=== PATIENT | male | born 1985 | race Caucasian/White ===

== ENCOUNTER 2019-05-21 20:30 | Emergency (ER) | payer BC, SELFPAY ==
[2019-05-21 20:33] VITALS: BP 137/78; PULSE 97; RESP 18; TEMP 36.6; O2SAT 100
--- NOTE | 2019-05-21 21:04 | ED.GENADULT ---
HPI - General Adult General Chief complaint: Eye Problems Stated complaint: R EYE PAIN Time Seen by Provider: 05/21/19 20:41 Source: patient Mode of arrival: ambulatory Limitations: no limitations History of Present Illness HPI narrative: Patient is a 34-year-old male who presents to emergency department for evaluation of scratch to the lateral right eye noting that his daughter accidentally poked him in the eye area is a small abrasion patient notes his tetanus is up-to-date notes mild pain does not take anything for his symptoms injury occurred just prior to arrival has no other complaints or concerns at this time Related Data Allergies Allergy/AdvReac Type Severity Reaction Status Date / Time No Known Allergies Allergy Mild Verified 05/21/19 20:49 Review of Systems Review of Systems: Narrative: CONSTITUTIONAL: Denies fever, chills, or sweats. EYES: Denies visual changes, or discharge. GASTROINTESTINAL: Denies nausea, vomiting NEUROLOGIC: Denies headache, PMFSH Social History Social History Smoking status: Former smoker Smoking end date: 04/15/16 Alcohol intake: never Gender identity (if verbalized by the patient): Male Exam Narrative: Exam Narrative: GENERAL: Well-appearing, well-nourished, and in no acute distress. HEAD: Normocephalic, atraumatic. EYES: PERRLA and EOMI. small abrasion to the lateral right conjunctive no other abnormalities noted ENT: Nares clear, no rhinorrhea or epistaxis. Mucous membranes moist. SKIN: Warm, dry, no rash. NEURO: No focal deficits. Alert and oriented x3. PSYCH: Normal mood and affect. Course Course Emergency Course: Patient in the room in no distress aware of case findings treatment plan and diagnosis agreeing to follow-up as directed or to return if symptoms worsen or concerns Vital Signs Vital signs: Vital Signs Temperature 98 F 05/21/19 20:33 Pulse Rate 97 05/21/19 20:33 Respiratory Rate 18 05/21/19 20:33 Blood Pressure 137/78 05/21/19 20:33 Pulse Oximetry 100 05/21/19 20:33 Temperature 98 F 05/21/19 20:33 Pulse Rate 97 05/21/19 20:33 Respiratory Rate 18 05/21/19 20:33 Blood Pressure 137/78 05/21/19 20:33 Pulse Oximetry 100 05/21/19 20:33 Medical Decision Making MDM Narrative Medical decision making narrative: Patient in the room in no distress aware of case findings treatment plan and diagnosis agreeing to follow-up as directed Vital Signs Vital Signs: Vital Signs Temperature 98 F 05/21/19 20:33 Pulse Rate 97 05/21/19 20:33 Respiratory Rate 18 05/21/19 20:33 Blood Pressure 137/78 05/21/19 20:33 Pulse Oximetry 100 05/21/19 20:33 Temperature 98 F 05/21/19 20:33 Pulse Rate 97 05/21/19 20:33 Respiratory Rate 18 05/21/19 20:33 Blood Pressure 137/78 05/21/19 20:33 Pulse Oximetry 100 05/21/19 20:33 Discharge Plan Discharge Clinical Impression: Corneal abrasion Patient Disposition: Home, Self-Care Condition: Stable Instructions: Antibiotic Form, Corneal Abrasion (ED) Additional Instructions: Follow-up with primary care and ophthalmology in the next 7 to 10 days for reevaluation Return if symptoms worsen or concerns or any increase in redness swelling pain fever over 100.5 or any visual changes Follow patient education sheets Only take medications as directed Use [id number] preservative-free tears for symptom relief every 2 hours Prescriptions: New erythromycin 5 mg/gram (0.5 %) ointment 1 applic RIGHT EYE TID Qty: 1 RF: 0 Follow-up/Referrals: Hmea Ramirez MD [Primary Care Provider] - Damaris Morel [Outside] Damaris Latham [Outside]
== END 2019-05-21 21:23 | disposition home or self-care (01) ==
PROVIDERS: Emergency Provider Emergency Medicine; PCP Family Medicine
DX: S05.01XA Injury of conjunctiva and corneal abrasion without foreign body, right eye, initial encounter (principal); Z87.891 Personal history of nicotine dependence; W51.XXXA Accidental striking against or bumped into by another person, initial encounter
CPT/HCPCS: 99283

== ENCOUNTER 2020-06-17 13:18 | Outpatient (CLI) | payer BC, SELFPAY ==
--- NOTE | ~2020-06-17 | US_ITS ---
EXAMINATION: US venous doppler UE LT DATE: 06/17/2020 14:06 INDICATION: Left upper limb pain and numbness TECHNIQUE: Grayscale images without and with compression and Doppler images of the left upper extremi ty veins were obtained. COMPARISON: None. FINDINGS: The left internal jugular vein, subclavian vein, axillary vein, brachial vein, basilic vein, cephalic vein, radial vein, and ulnar vein are patent. IMPRESSION: 1. Patent left upper extremity veins. No evidence of venous thrombosis. Reviewed, dictated and finalized at location B. ALK SOFTWARE DEVELOPER
== END 2020-06-17 13:19 ==
PROVIDERS: PCP Family Medicine; Visit Provider Physician Assistant
DX: M79.603 Pain in arm, unspecified (principal); R09.89 Other specified symptoms and signs involving the circulatory and respiratory systems; R20.0 Anesthesia of skin
CPT/HCPCS: 93971

== ENCOUNTER 2023-02-15 14:07 | Outpatient (CLI) | payer BC, SELFPAY ==
--- NOTE | ~2023-02-15 | XR_ITS ---
XR shoulder RT min 2V 02/15/2023 15:06 Indication: Right shoulder pain Procedure: 4 views right shoulder Comparison: No prior studies for comparison. Findings: No fracture, subluxation or dislocation. No significant soft tissue abnormality. No foreign bodies. Impression: 1: No acute bone or joint abnormality. Reviewed, dictated and finalized at location A. Impression: 1: No acute bone or joint abnormality.
--- NOTE | ~2023-02-15 | XR_ITS ---
XR cervical spine min 6V 02/15/2023 15:06 Indication: Neck pain Procedure: 7 views cervical spine including flexion/extension views Comparison: No prior studies for comparison. Findings: Lung apices are normal. Odontoid process is normal. No prevertebral soft tissue abnormality . No significant alteration of alignment with flexion/extension. There is degenerative retrolisthesis at C5-6 which is unchanged during flexion and extension. There is mild disc narrowing at C5-6. No pr evertebral soft tissue swelling. Impression: 1: Mild spondylosis at C5-6. Reviewed, dictated and finalized at location A. Impression: 1: Mild spondylosis at C5-6.
== END 2023-02-15 14:08 ==
LOC: MICIMG 14:11
PROVIDERS: PCP Physician Assistant; Visit Provider Physician Assistant
DX: M43.02 Spondylolysis, cervical region (principal)
CPT/HCPCS: 72052; 73030

== ENCOUNTER 2025-02-26 04:21 | Emergency (ER) | payer OTHER, SELFPAY ==
--- NOTE | ~2025-02-26 | CT_ITS ---
EXAMINATION: CT brain wo con, CT facial bones wo con DATE: 02/26/2025 09:08 INDICATION: Syncope with facial trauma TECHNIQUE: 1. Computed tomography (CT) of the head was performed without intravenous contrast. Sagittal and coronal reconstructions were performed. The mA was adjusted according to patient size. Iterative reconstruction technique was employed. The dose-length product was 336.32 mGy-cm. 2. CT of the facial bones and maxillofacial region was performed without intravenous contrast. Coronal reconstructions were obtained. Automated exposure control and iterative reconstruction technique were employed. The dose-length product was 336.32 mGy-cm. COMPARISON: None. FINDINGS: Head CT: No calvarial fractures. No acute intracranial hemorrhage, acute infarction or abnormal extra axial fluid collection. Ventricles are normal and symmetric. No mass/mass effect. The mastoid air cells and middle ear cavities are clear. Maxillofacial CT: No maxillofacial fractures. Specifically the mandible, nasal bones, zygomatic arches and dill of the orbits and paranasal sinuses are all intact. Orbits are normal. Paranasal sinuses are clear. Mild to moderate cervical spondylosis. IMPRESSION: 1. Normal brain with no acute intracranial process. 2. No calvarial or maxillofacial fractures. Reviewed, dictated and finalized at location A. MENT REVIEW SPECIALIST IMPRESSION: 1. Normal brain with no acute intracranial process. 2. No calvarial or maxillofacial fractures.
--- NOTE | ~2025-02-26 | XR_ITS ---
Examination: XR shoulder LT min 2V Clinical History: dislocation Comparison: None Technique: 3 views left shoulder Findings/impression: 1. No fracture or dislocation left shoulder. Reviewed, dictated and finalized at location R. STOR RELATIONS COORDINATOR
--- NOTE | ~2025-02-26 | XR_ITS ---
EXAMINATION: XR shoulder LT min 2V DATE: 02/26/2025 09:47 INDICATION: Status post reduction left shoulder dislocation TECHNIQUE: AP internally and transscapular Y views of the left shoulder were obtained. COMPARISON: 02/26/2025 FINDINGS: The left glenohumeral joint which appear previously posterior subluxed/dislocated appears successfully reduced to normal alignment. No fracture. 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 Visualized portion of the lungs are clear. Tissues are unremarkable. IMPRESSION: Successful reduction to normal alignment of a previous the posterior subluxed dislocated left glenohumeral joint. No acute fracture. Reviewed, dictated and finalized at location A. TATION ENGINEER IMPRESSION: Successful reduction to normal alignment of a previous the posterior subluxed d islocated left glenohumeral joint. No acute fracture.
[2025-02-26 04:26] VITALS: BP 151/73; PULSE 70; RESP 18; TEMP 36.7; O2SAT 100
[2025-02-26 07:55] VITALS: BP 180/75; PULSE 123; RESP 18; O2SAT 100
--- NOTE | 2025-02-26 07:58 | PC.NURSE ---
This RN called out to waiting room by housekeeping to check on pt. pt diaphoretic, and moaning in pain. pt states his left shoulder disloacted. pt in obvious pain. Pt brought into triage and vitals taken and IV started. Pt states that he has always been able to reduce his shoulder but can't get it back in this time. Pt moaning and crying in pain. MD made aware of situation, pain medications ordered and XR ordered at this time
[2025-02-26] MEDS: HYDROcodone/acetaminophen (*CRX) 5-325 MG TABLET 1 TAB PO (08:02)
[2025-02-26] MEDS: KETOROLAC 30 MG/ML VIAL (*BKC) IV PUSH (08:02)
--- NOTE | 2025-02-26 08:46 | ED_ITS ---
HPI - Syncope General Chief Complaint: Syncope Stated Complaint: syncope, chin lac Time Seen by Provider: 02/26/25 08:25 History of Present Illness HPI narrative: This is a 40-year-old male with history of frequent shoulder dislocations who presents to ED for a constellation of complaints. Patient states that he last night he was playing with his daughter and had his left arm flexed upwards near his head and he felt it pop out. He was able to reduce it himself but in doing so had severe pain and subsequently had an episode of syncope and hit a metal cabinet with his left chin. He states that his shoulder popped back out prompting him to come to the ED. reports that he feels at his baseline otherwise at this time. Denies headache, changes in vision, chest pain, palpitations shortness of breath. Related Data Allergies Allergy/AdvReac Type Severity Reaction Status Date / Time No Known Allergies Allergy Mild Verified 02/26/25 04:30 Review of Systems Review of Systems: Gen.: Denies fevers or chills Eyes: Denies eye pain or visual change ENT: Denies congestion Respiratory: Denies shortness of breath or cough CV: Denies chest pain or palpitations GI: Denies abdominal pain nausea, emesis or diarrhea denies burning, urgency, frequency or hematuria Musculoskeletal: As per HPI Neuro: Denies numbness, tingling, weakness or focal weakness Skin: Denies rash Except as documented, all other systems reviewed and negative [facility] Social History Social History Smoking packs per day: 0.5 Smoking cigarettes per day: 10.0 Years smoked: 11 Smoking pack-years: 5.50 Smoking status: Current every day smoker Tobacco type: cigarettes and e-cigarettes/vaping Second hand tobacco smoke exposure: No Smoking end date: 04/15/16 Alcohol intake: never Substance use: never Substance use type: does not use Living arrangements: with family Occupation/Education: occupation Gender identity (if verbalized by the patient): Male Sexual Orientation (if Verbalized by the Patient): Straight or Heterosexual Spiritual care concerns: No Exam Narrative: APPEARANCE: No acute distress, nontoxic, resting in bed EYES: EOMI HEENT: Normocephalic, atraumatic, OMM RESPIRATORY: No respiratory distress Clear to auscultation bilaterally with no rhonchi wheezing or rales. CARDIOVASCULAR: Regular rate and rhythm without murmurs rubs or gallops. ABDOMINAL: Soft, nontender, nondistended, no rebound or guarding MUSCULOSKELETAl: left upper extremity is held up against the chest. no jose tenderness. Pain with minimal passive ROM of the left upper extremity. Neurovascularly intact distally. NEURO: Awake and alert. Following commands, speech normal, no focal deficits SKIN:: Warm, dry. No rashes lesions or abrasions PSYCHIATRIC: Normal affect/mood, Course Vital Signs Vital signs: Vital Signs Temperature 98.0 F 02/26/25 04:26 Pulse Rate 70 02/26/25 04:26 Respiratory Rate 18 02/26/25 04:26 Blood Pressure 151/73 H 02/26/25 04:26 Pulse Oximetry 100 02/26/25 04:26 Temperature 98.0 F 02/26/25 04:26 Pulse Rate 81 02/26/25 10:10 Respiratory Rate 16 02/26/25 10:10 Blood Pressure 137/79 02/26/25 10:10 Pulse Oximetry 98 02/26/25 10:10 Procedures Laceration Laceration 1: Date: 02/26/25 Time: 09:25 Site: face (chin) Side (If applicable): left Size (cm): 2 Description: linear Depth: simple, single layer Local Anesthetic: lidocaine 2% Amount of anesthesia used (mL): 5 Pre-repair: wound explored and irrigated ====== Skin Level ====== Skin layer closed with: prolene Size (cm): 6-0 Number of sutures: 4 Technique: simple, interrupted ====== Subcutaneous Layer ====== ====== Muscle Layer ====== ====== Tendon Layer ====== Orthopedic Joint Reduction Joint #1: Orthopedic Joint Reduction Date: 02/26/25 Orthopedic Joint Reduction Time: 08:45 Side: left Joint Reduction Location: shoulder Analgesia: none Pre-Procedure Neuro Vascular Exam: normal Local Anesthesia: none Shoulder Technique Used (if applicable): external rotation Post-reduction neuro exam: intact Post-reduction vascular: intact Post Reduction X-Ray Obtained: No (dislocated clinically, but xray showed no dislocation) MDM - Syncope MDM Narrative Medical decision making narrative: 40-year-old male Presenting for syncope, left shoulder dislocation and chin lack. On initial evaluation patient was in no acute distress afebrile, hemodynamic stable. Differentials include but are not limited to: Fracture, sprain, strain, contusion, laceration, vasovagal syncope, cardiogenic syncope Notable exam findings: 2 cm laceration to the left chin, bleeding controlled. Left arm is braced against abdomen. Tenderness over the left posterior glenohumeral joint. I personally reviewed the patient's images. Notable imaging findings: Initial X-ray left shoulder showed no evidence of dislocation. CT brain and CT facial bones showed no acute process. While the patient did not have dislocation x-ray, he did clinically have a left shoulder dislocation. With some minimal manipulation and patient participation again, we were able to reduce the shoulder he did have some return of range of motion. He was immediately placed in a shoulder immobilizer. Repeat x-ray was obtained which confirmed reduction. Laceration was repaired as above. Patient tolerated procedure well. I did speak with Dr. Huerta, who will see the patient in follow-up for further evaluation of his shoulder dislocations. Patient was agreeable to this plan. Given strict return precautions. Medical Records Attestation: I reviewed the patient's medical records. Imaging Data Attestation: I personally reviewed and interpreted this imaging study as follows: Radiologist's impression: Impressions Face CT 02/26/25 09:09 IMPRESSION: 1. Normal brain with no acute intracranial process. 2. No calvarial or maxillofacial fractures. Head CT 02/26/25 09:09 IMPRESSION: 1. Normal brain with no acute intracranial process. 2. No calvarial or maxillofacial fractures. Shoulder X-Ray 02/26/25 09:53 IMPRESSION: Successful reduction to normal alignment of a previous the posterior subluxed dislocated left glenohumeral joint. No acute fracture. Discharge Plan Discharge Clinical Impression: Recurrent anterior dislocation of left shoulder, Vasovagal syncope Fall Qualifiers: Encounter type: initial encounter Qualified Code(s): W19.XXXA - Unspecified fall, initial encounter Chin laceration Qualifiers: Encounter type: initial encounter Qualified Code(s): S01.81XA - Laceration without foreign body of other part of head, initial encounter Patient Disposition: Home Condition: Stable Instructions: Antibiotic Form, Shoulder Dislocation (ED), Syncope (ED), Facial Laceration (ED) Additional Instructions: keep shoulder immobilizer until follow-up with orthopedic surgery. You were given a referral to Dr. Huerta, orthopedic surgery animal nutrition consultant his office today to schedule appointment. You may take Tylenol and ibuprofen for the pain. Sutures may be removed in 5-7 days, you may follow-up with your PCP for any urgent care or ED. Return to ED for any new or worsening symptoms. Patient Language: British Prescriptions: No Action tizanidine 2 mg tablet 2 mg PO TID PRN (Reason: muscle spasticity) Qty: 30 0RF Follow-up/Referrals: Hema Ramirez MD [Primary Care Provider, Family Practice] Jacques Huerta MD [Physician, Orthopedics] Stand Alone Forms: Work/School Release IP
--- OUTSIDE RECORDS SUMMARY | 2025-02-26 08:56 | XMS_ITS | Clinical Summary ---
Author Organization [facility] Address [address] [place] [id number] Care Team Providers Care Certified Ophthalmic Technologist Name Role Phone Hema Ramirez MD Primary Care Provider Allergies No known active allergies Medications azithromycin (ZITHROMAX) 250 mg tabletIndications :Acute non-recurrent pansinusitis Take 2 tabs (500 mg) by mouth today, than 1 daily for 4 days. 6 tablet 01/27/2023 Active Active Problems No known active problems Social History Tobacco Use Types Packs/Day Years Used Date Smoking Tobacco: Never Assessed Sex and Gender Information Value Date Recorded Sex Assigned at Not on file Legal Sex Male 8:56 AM CDT Gender Identity Not on file Sexual Orientation Not on file Last Filed Vital Signs Vital Sign Reading Time Taken Comments Blood Pressure 137/84 01/27/2023 3:01 PM CDT Pulse 70 01/27/2023 3:01 PM CDT Temperature 37 C (98.6 F) 01/27/2023 3:01 PM CDT Respiratory Rate 16 01/27/2023 3:01 PM CDT Oxygen Saturation 99% 01/27/2023 3:01 PM CDT Inhaled Oxygen Concentration - - Weight 83.9 kg (185 lb) 01/27/2023 3:01 PM CDT Height - - Body Mass Index - - Plan of Treatment Health Maintenance Due Date Last Done Comments Depression Screening 1985 Hepatitis C Screening 1985 Varicella Vaccines (1 of 2 - 13+ 2-dose series) 1998 Regular Well Visit/Exam 18-64 2003 HPV Vaccines (1 - 3-dose SCDM series) 01/17/2012 Influenza Vaccine (#1) 2024 DTaP/Tdap/Td Vaccine (6 - Td or Tdap) 07/18/2025 07/19/2015, 09/20/1999, 10/14/1986, Additional history exists Hepatitis B Screening Completed 07/03/2002 , 02/02/2002, 12/29/2001 Pneumococcal vaccine <65 Aged Out No longer eligible based on patient's age to complete this topic Insurance [employer] ACCESS Care Teams Certified Ophthalmic Technologist Relationship Specialty Start Date End Date Hema Ramirez MD [id number] [place] [address] PCP - General Family Medicine 01/27/23
[2025-02-26] MEDS: TETANUS,DIPHTHERIA,AC PERTUSSIS ADULT (0.5 ML) BOOSTRIX IM (09:04)
[2025-02-26 10:10] VITALS: BP 137/79; PULSE 81; RESP 16; O2SAT 98
== END 2025-02-26 10:11 | disposition home or self-care (01) ==
PROVIDERS: Emergency Provider Student in an Organized Health Care Education/Training Program; PCP Family Medicine
DX: M24.412 Recurrent dislocation, left shoulder (principal); S01.81XA Laceration without foreign body of other part of head, initial encounter; R55 Syncope and collapse; Z23 Encounter for immunization; Z87.891 Personal history of nicotine dependence; W22.8XXA Striking against or struck by other objects, initial encounter
CPT/HCPCS: 23650; 70450; 70486; 73030; 90471; 90715; 96374; 99285; A9270; J1885